=== PATIENT | male | born 1980 | race Two or more races ===

== ENCOUNTER 2017-03-16 18:22 | Emergency (ER) | payer SELFPAY ==
[~2017-03-16] VITALS: Ht 180.3 cm; Wt 117.9 kg
--- NOTE | 2017-03-16 18:32 | NUR ---
Patient discharged to [facility] custody in stable conditon. Written and verbal after care instructions given to [employer] officer.
== END 2017-03-16 18:41 ==
LOC: ER 18:30
DX: Z00.8 Encounter for other general examination (principal); F17.210 Nicotine dependence, cigarettes, uncomplicated
CPT/HCPCS: A4663

== ENCOUNTER 2025-01-14 16:58 | Emergency (ER) | payer OTHER ==
[~2025-01-14] VITALS: Ht 167.6 cm; Wt 93.0 kg
[2025-01-14] MEDS ORDERED: LIDOCAINE 1%-EPI 1:100,000 20 ML VIAL ONE (17:12)
[2025-01-14] MEDS: LIDOCAINE 1%-EPI 1:100,000 20 ML VIAL IJ ONE (17:21)
[2025-01-14] MEDS ORDERED: NEOMY/BACITRA/POLYMYXIN B OINT UD PACKET TP ONE (18:04)
[2025-01-14] MEDS: NEOMY/BACITRA/POLYMYXIN B OINT UD PACKET TP ONE (18:10)
[2025-01-14] MEDS ORDERED: TDAP DIPH,PERTUSS,TET VAC/PF 0.5 ML DISP.SYRIN IM ONE (18:19)
[2025-01-14] MEDS: TDAP DIPH,PERTUSS,TET VAC/PF 0.5 ML DISP.SYRIN IM ONE (18:26)
[2025-01-14 18:27] VITALS: BP 121/80; O2SAT 98
== END 2025-01-14 18:28 | disposition home or self-care (01) ==
LOC: ER 16:58 → EDBD 16:58 → ER 18:28
DX: S61.211A Laceration without foreign body of left index finger without damage to nail, initial encounter (principal); W26.9XXA Contact with unspecified sharp object(s), initial encounter; Y93.9 Activity, unspecified; Y92.9 Unspecified place or not applicable; Y99.9 Unspecified external cause status
CPT/HCPCS: 12001; 90471; 90715; 99283; J3490; A4606; A4663

== ENCOUNTER 2025-01-17 16:45 | Emergency (ER) | payer OTHER ==
[~2025-01-17] VITALS: Ht 167.6 cm; Wt 90.7 kg
[2025-01-17] MEDS ORDERED: NEOMY/BACITRA/POLYMYXIN B OINT UD PACKET TP ONE (18:03)
[2025-01-17] MEDS: NEOMY/BACITRA/POLYMYXIN B OINT UD PACKET TP ONE (18:06)
[2025-01-17 18:10] VITALS: BP 140/77; TEMP 98; O2SAT 99
== END 2025-01-17 18:11 | disposition home or self-care (01) ==
LOC: ER 16:45
DX: S61.211D Laceration without foreign body of left index finger without damage to nail, subsequent encounter (principal); X58.XXXD Exposure to other specified factors, subsequent encounter
CPT/HCPCS: A4606; A4663

== ENCOUNTER 2025-01-24 17:05 | Emergency (ER) | payer OTHER ==
[~2025-01-24] VITALS: Ht 170.2 cm; Wt 86.2 kg
[2025-01-24 17:40] VITALS: BP 132/69; O2SAT 99
== END 2025-01-24 17:41 | disposition home or self-care (01) ==
LOC: ER 17:05
DX: S61.211D Laceration without foreign body of left index finger without damage to nail, subsequent encounter (principal); Z48.02 Encounter for removal of sutures; X58.XXXD Exposure to other specified factors, subsequent encounter
CPT/HCPCS: A4606; A4663